=== PATIENT | male | born 1970 | race Caucasian/White ===

== ENCOUNTER 2019-01-28 09:54 | Day surgery (SDC) | payer OTHER ==
[2019-01-28] MEDS ORDERED: PROPOFOL 10 MG/ML VIAL IV ONE (09:55)
[2019-01-28] MEDS ORDERED: LIDOCAINE 2% MDV (20MG/ML) 20ML VIAL IV ONE (09:55)
--- NOTE | 2019-01-29 09:00 | Operative Note ---
DATE OF SURGERY: 01/28/2019 OPERATION: COLONOSCOPY to the cecum with cold snare polypectomy. INDICATION: Colorectal cancer screening. This is the patient's first colonoscopy. ANESTHESIA: Intravenous sedation was administered by the department of anesthesiology and included Diprivan titrated to effect. PROCEDURE: Following informed consent from this alert individual including a discussion of the risks and benefits of the procedure and an opportunity for the patient to ask questions, the patient was in the left lateral decubitus position. A digital rectal examination was performed. No abnormalities were noted. Following this, the Olympus [id number] video colonoscope was inserted into the rectum without resistance. The rectal mucosa had a normal appearance with normal folds and distensibility. The colonoscope was advanced up through the bowel to the level of the cecum without much difficulty. Throughout the bowel the mucosa appeared normal, the folds were normal, and the bowel was fairly well distensible. The cecum was defined by noting the appendiceal orifice and ileocecal valve. The colon preparation was good. Retroflexion in the cecum was unremarkable. From the base of the cecum, the colonoscope was then withdrawn. At the hepatic flexure, there was a 4 mm polyp noted which was removed with cold snare polypectomy and suctioned through the colonoscope into a collection trap. No other changes were noted throughout the bowel. Retroflexion in the rectum was endoscopically unremarkable. The endoscope was straightened and withdrawn. The patient tolerated the procedure well and was returned to the recovery area in stable condition. IMPRESSION: 1. A 4 mm hepatic flexure polyp. 2. Otherwise unremarkable colonoscopy to the cecum. RECOMMENDATIONS: Further recommendations will be forthcoming pending results of pathology obtained today. Followup will be with Beth Bernard, nurse practitioner. As always, thank you for allowing me to participate in the care of your patient. CC: KRITSEL Herrera
--- NOTE | 2019-01-29 09:00 | Operative Note ---
DATE OF SURGERY: 01/28/2019 OPERATION: ESOPHAGOGASTRODUODENOSCOPY with multiple biopsies. INDICATION: Chronic gastroesophageal reflux disease for 30 years. The patient denies previous endoscopy. He is using Prilosec daily to control pyrosis. He denies any dysphagia. ANESTHESIA: Intravenous sedation was administered by the department of anesthesiology and included Diprivan titrated to effect. PROCEDURE: Following informed consent from this alert individual, including a discussion of the risks and benefits of the procedure and an opportunity for the patient to ask questions, the patient was in the left lateral decubitus position. The Olympus [id number] video endoscope was inserted into the esophagus without resistance. The proximal esophagus had a normal appearance with normal folds and distensibility. The mid esophagus likewise was free from changes. The posterior pharynx as well was free from abnormalities. At the distal esophageal segment, there was some irregularity of the squamocolumnar junction suggesting short-segment Jordan's esophagus and sitting above a small 2 cm hiatal hernia. There were no ulcerations or erosions noted. The subdiaphragmatic stomach was entered and found to be unremarkable. The pylorus was patent. The duodenal bulb, sweep, and descending duodenum were examined in a serial fashion and found to be normal as well. The endoscope was then drawn back into the stomach where retroflexion accomplished following air insufflation again revealed a hiatal hernia. No other changes were noted. The endoscope was straightened and withdrawn to the distal esophagus where multiple biopsies were taken from the irregular junction to evaluate for Jordan's epithelium. After biopsy, endoscope was then withdrawn back through a normal mid and proximal esophagus and removed from the patient. He tolerated the procedure well and was returned to the recovery area in stable condition. IMPRESSION: 1. 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 Biopsies taken. 2. Small 2 cm hiatal hernia. RECOMMENDATION: The patient will continue on acid blockade at this time. Further recommendations may be forthcoming pending results of biopsy. Followup will also be with Beth Bernard, nurse practitioner. As always, thank you for allowing me to participate in the care of your patient. CC: KRISTEL Herrera
== END 2019-01-28 12:20 | disposition home or self-care (01) ==
LOC: HOP 09:54
PROVIDERS: ATTEND Internal Medicine Gastroenterology
DX: Z12.11 Encounter for screening for malignant neoplasm of colon (principal); K63.5 Polyp of colon; K21.9 Gastro-esophageal reflux disease without esophagitis; K22.70 Barrett's esophagus without dysplasia; K44.9 Diaphragmatic hernia without obstruction or gangrene; I10 Essential (primary) hypertension; E78.00 Pure hypercholesterolemia, unspecified; J44.9 Chronic obstructive pulmonary disease, unspecified